=== PATIENT | male | born 1935 | race Caucasian/White ===

== ENCOUNTER 2016-07-06 18:03 | Emergency (ER) ==
[2016-07-06 18:15] VITALS: BP 144/72; TEMP 98.2
[2016-07-06 18:20] VITALS: BMI 34.2
--- NOTE | 2016-07-06 18:22 | ED.PDOC ---
General ED Provider: Dr. NATALIO MARTIN JR Chief Complaint: Foot Pain/Injury Stated Complaint: moving stacked cabinets today--cabinets fell--causing him to stumble and one cabinet fell ontp left foot--edge cut foot. [ End ]1500 today 98.2 68 20 94% 144/72 08/06 Time Seen by Physician: 18:18 Mode of Arrival: Walk-In Information Source: Patient Exam Limitations: No limitations Primary Care Provider: [facility] Nursing and Triage Documentation Reviewed and Agree: No Review of Systems - Review Of Systems Constitutional: Reports: No symptoms Eyes: Reports: No symptoms Ears, Nose, Mouth, Throat: Reports: No symptoms Respiratory: Reports: No symptoms Cardiac: Reports: No symptoms GI: Reports: No symptoms : Reports: No symptoms Musculoskeletal: Reports: No symptoms Skin: Reports: Lesions Neurological: Reports: No symptoms Endocrine: Reports: No symptoms Hematologic/Lymphatic: Reports: No symptoms All Other Systems: Other Past Medical History - Past Medical History Endocrine: Reports: DM 2, Dyslipidemia Cardiovascular: Reports: CAD, Hypertension, Other (--floppy valve--) Respiratory: Reports: None Hematological: Reports: None Gastrointestinal: Reports: None Genitourinary: Reports: None Neuro/Psych: Reports: None Musculoskeletal: Reports: Arthritis Cancer: Reports: None - Surgical History General Surgical History: Reports: Appendectomy, Cholecystectomy, Stent ( cardiac stents), Other (prostate) - Family History Family History: Reports: Unknown - Social History Smoking Status: Former smoker Hx Substance Use: No Alcohol Screening: None Physical Exam - Physical Exam Appearance: Well-appearing Skin: Warm, Dry, Normal color (transverse 8mm lace across mid left first MT) Procedures - Laceration/Wound Repair No standard instances Wound Description: Linear Wound Length (cm): 0.8 Wound Explored: Clean Wound Prep: Saline, Hibiclens Anesthesia: Lidocaine Wound Repaired With: Sutures Suture Size and Type: 4-0 nylon Number of Sutures: 2 Critical Care Note - Critical Care Note Total Time (mins): 0 Course - Course Orders, Labs, Meds: Orders Category Date Time Status Lidocaine HCl/Pf [Lidocaine 1 % Amp 5 ml (Sutures)] MEDS 07/06/16 18:27 Discontinued 5 ml SUBCUT ONCE STA FOOT, LEFT 3 VIEWS Stat RADS 07/06/16 18:42 Taken Medications Discontinued Medications Generic Name Dose Route Start Last Admin Trade Name Reymundo PRN Reason Stop Dose Admin Lidocaine HCl 5 ml 07/06/16 18:27 07/06/16 18:31 Lidocaine 1 % Amp 5 Ml (Sutures) SUBCUT 07/06/16 18:28 5 ml ONCE STA Administration Vital Signs: Temp Pulse Resp BP Pulse Ox 07/06/16 18:04 98.2 F 68 20 144/72 H 94 L Departure - Departure Time of Disposition: 18:30 Disposition: HOME SELF-CARE Discharge Problem: Injury of foot Laceration of foot excluding toes without complication Qualifiers: Encounter type: initial encounter Laterality: left Qualifier Code: (S91.312A) Laceration without foreign body, left foot, initial encounter Instructions: Laceration (ED), Care For Your Stitches (ED) Condition: Good Pt referred to PMD for follow-up: Yes Additional Instructions: sutures out in one week clean and dry for three days bear weight cautiously until pain resolved(three days) Tylenol for pain Allergies/Adverse Reactions: Allergies cefaclor [From Ceclor] Adverse Reaction (Verified 07/06/16 18:13) cephalexin [From Keflex] Adverse Reaction (Verified 07/06/16 18:13) levofloxacin [From Levaquin] Adverse Reaction (Verified 07/06/16 18:13) Home Medications: Ambulatory Orders 1 [Unobtainable] 07/06/16
[2016-07-06] MEDS ORDERED: LIDOCAINE 1 % AMP 5 ML (SUTURES) SUBCUT STA (18:27)
--- NOTE | 2016-07-07 07:41 | DI ---
EXAM: Radiographs, left foot HISTORY: Initial presentation for left first metatarsal region contusion, laceration. COMPARISON: None available. TECHNIQUE: Three views. FINDINGS: No acute fracture or dislocation identified. Mild osteoarthritic changes are present. Small planta r calcaneal spur noted. Focal soft tissue swelling with bandage is seen along the medial aspect of the first metatarsal shaft. IMPRESSION: No fracture or dislocation.
== END 2016-07-06 19:06 | disposition home or self-care (01) ==
LOC: ED 18:03
DX: S91.312A Laceration without foreign body, left foot, initial encounter (principal); W20.8XXA Other cause of strike by thrown, projected or falling object, initial encounter
CPT/HCPCS: 99283